=== PATIENT | male | born 1965 | race Caucasian/White ===

== ENCOUNTER 2020-03-05 08:08 | Inpatient (IN) ==
[2020-03-05] MEDS ORDERED: CEFAZOLIN 1000MG 1,000 MG/7.5 ML SYR IV ONE (08:34)
[2020-03-05] MEDS ORDERED: ONDANSETRON INJ 2 MG/ML 2 ML VIAL IV PRN (08:36)
[2020-03-05] MEDS ORDERED: ACETAMINOPHEN 325 MG TAB PO PRN (08:36)
--- NOTE | 2020-03-05 08:42 | History & Physical Report ---
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 - Keep NPO for perma cath today by Dr. Price - consult placed - Check CBC, CMP and hepatitis panel now - EKG for preop clearance-NSR - Cont sodium bicarb, prednisone 80 mg daily-no need for stress dose steroids as BPs high and not steroids dependent (only on prednisone x 2 weeks) - Re-eval if pt really taking calcitrol - will order (2) Glomerulonephritis: C-ANCA positive acute GN Worsening renal function On high dose steroids x 2 weeks -for perm cath placement today and start HD tomorrow -follow labs -continue prednisone 80mg daily for now nad plan to taper down -continue NaHCO3, calcitriol Appreciate Nephrology management (3) Hyperparathyroidism: continue calcitriol (4) HTN (hypertension): - Cont lebatolol 300 mg BID, will need improved BP control, likely anxiety worsening BP this morning. - Appears he was discharged on amlodipine 10 mg daily after stay from [place] but is not taking this medication - Pt took morning dose (5) Normocytic anemia: - Had baseline hemoglobin of 9.8, was given IV Venofer 300 mg x 3 days while at [place], follow CBC - Cont supplemental iron tabs - reinforce to take at home upon discharge (6) DVT prophylaxis: - cassia leal CODE: Full Dispo: From home, likely to remain in the hospital x 1-2 days Admission and Anticipated Discharge Date Admission Date: March 05, 2020 History of Present Illness Chief Complaint: Needs dialysis Primary Care Provider: Jone Reddy This is a 54 yo M with PMHx of glomerulonephritis, acute on chronic anemia, hypertension, hyperparathyroidism secondary to renal disease who underwent recent kidney biopsy at [facility] on 02/15/2020. PT also smokes 1 ppd x many years. He used to drink heavily however has only had a few beers occasionally in the past 6 months. His course started in September at which his Cr was noted to be elevated at 2.7, and concern for hematuria and proteinuria and followed with nephrology since then. His care was delayed due to COVID-19 in December when he was supposed to follow with them. His Cr worsened to 3.6 and hgg dropped to 8.8, and pt was sent to [facility] [place] expedited workup for glomerulonephritis including kidney biopsy. He was admitted at [facility] [place]14[place]. He presents here today for placement of a permacath by vascular surgery. Nephrology has been consulted. He has been NPO since last evening. His last Cr. is fro 02/27 was 3.62. He has since been started on prednisone 80 mg daily, labetalol 300 mg BID, and sodium bicarb 1,300 mg TID. The patient is nervous about the procedure and has some fears about being on dialysis for his life. Allergies Allergy/AdvReac Type Severity Reaction Status Date / Time No Known Drug Allergies Allergy Unknown Verified 02/22/20 13:04 Home Medications Home Medications Medication Instructions Recorded Confirmed Type ferrous sulfate 325 mg (65 mg 325 mg PO BID #60 tab 02/14/20 03/05/20 Rx iron) tablet labetalol 100 mg tablet 300 mg PO BID tab 02/22/20 03/05/20 History prednisone 20 mg tablet 80 mg PO DAILY tab 02/22/20 03/05/20 History sodium bicarbonate 650 mg tablet 1,300 mg PO TID tab 02/22/20 03/05/20 History Past Med/Surg History Medical History (Updated 03/05/20 @ 10:05 by Suma Jensen MD) Acute kidney injury Chronic kidney disease, stage 4 (severe) End stage renal disease Glomerulonephritis HTN (hypertension) Internal hemorrhoids Lyme disease Surgical History (Updated 03/05/20 @ 10:05 by Suma Jensen MD) Status post biopsy of kidney Family History Brother Hyperlipemia Hypertension Mother Hypertension Sister Kidney disease Grandfather (Paternal) COPD (chronic obstructive pulmonary disease) Social History (Updated 03/05/20 @ 10:05 by Suma Jensen MD) Preferred Language: Serbian Communication Ability: Effective Gis Coordinator Required: No Beliefs That Will Affect Care: None marital status: Current Living Situation: Alone current occupational status: unemployed Other Information That Helps Us Care for You: No Feels Safe at Home: Yes Safety Concerns: Feels Safe At This Time Smoking Status: Current every day smoker Tobacco Type: cigarettes ; packs per day: 1 ; Cigarettes Per Day: 20 ; Do You Dip or Chew Tobacco: No ; Second Hand Exposure: No ; Tobacco Cessation Education Requested by Patient: No Hx Alcohol Use: Yes Hx Substance Use: No Seatbelt Use: always Sunscreen Use: No Review of Systems Review of Systems: Constitutional: No fever, sweats or chills Eyes: No diplopia, no worsening or blurred vision ENT: normal hearing, no trouble swallowing Respiratory: No cough, sputum, dyspnea at rest or on exertion Cardiovascular: No chest pain, tightness or palpitations Abdomen: No pain, nausea, vomiting, diarrhea or constipation : no hematuria, no dysuria or increased frequency Musculoskeletal: No joint pain, calf pain, swelling Neurologic: No weakness, numbness/tingling, or balance problems Skin: No rash or itch Physical Exam Physical Exam: General: awake, alert, no apparent distress, + anxious Head: Normocephalic, atraumatic ENT: PERRL, EOMI, no pharyngeal exudate, mucous membranes moist Chest: on room air, +slightly diminished, no adventitious breath sounds Cardiac: Regular rate and rhythm, no murmur, no JVD, normal peripheral pulses, good capillary refill Abdominal: NABS x 4 quadrants, soft, nondistended, nontender to palpation, no rebound, guarding or tenderness Extremities: Normal inspection, no peripheral edema or erythema, calfs nontender to palpation Psych: Depressed mood and affect Neuro: AAO x 3, strength intact bilaterally and rated 5/5, no motor deficits, speech is clear, no peripheral sensory deficits Results & Data Results & Data ([facility]) ECG Additional Comments: Reviewed at bedside - NSR without ST wave abnormalities or signs of ischemia Code Status & VTE Plan Code Status Full code - discussed with pt at baseline VTE Prophylaxis Plan VTE Prophylaxis will be ordered: Yes Supervising Physician Co-Signing Physician Notes PA Supervision Note: I personally saw and examined the patient. I verified all revin points and agree with YULI Fitch with the following exceptions and/or additions: Pt here to get perm cath and start acute HD for acute GN, C-ANCA positive on biopsy Was feeling low appetite and fatigue but slightly better since admission to [facility] [place] with renal biopsy and received IV Venofer and hydration, also started on high dose prednisone History and ROS reviewed as above VSS NAD, AAOx3 RRR no mgr CTAB no wcr ABd +BS soft NT ND no bruits Ext no edema SKin no rashes Labs reviewed, ECG reviewed Old records reviewed Case d/w Dr. Bautista of Nephrology and [place] [facility] of Vascular Surgery as well as Dr. Price of Vascular Surgery 54 yo male here with acute GN, worsening renal failure, needs acute HD and perm cath placement -admit -perm cath placement -start HD tomorrow -follow BMP, CBC, Fe studies check COVID test now for preop but no signs or symptoms and had negative test 2 weeks ago at [facility] Start amlodipine 5mg daily for hytpertensive urgency, no need for stress dose steroids Will need DVT proph after procedure PG Care Time/CCT Total # of Minutes Spent Total Time Spent with Patient: Total time spent is greater than 50% in coordination of care (as documented) at patient's floor/unit and/or counseling patient: Coding Level of Care Code 00062 Initial Inpt Care Lvl 3 Diagnoses Chronic kidney disease, stage 4 (severe) N18.4 Glomerulonephritis N05.9 Hyperparathyroidism E21.3 HTN (hypertension) I10 Normocytic anemia D64.9 DVT prophylaxis Z29.9
[2020-03-05] MEDS ORDERED: PNEUMOCOCCAL ADMINISTRATION CHARGE ONE (08:45)
[2020-03-05] MEDS ORDERED: PNEUMOCOCCAL POLYSACCHARIDES 25 MCG/0.5 ML VIAL/SYR IM ONE (08:45)
[2020-03-05] MEDS ORDERED: HYDROCORTISONE SOD 100 MG in SYRINGE 0 ML IV SCH (09:15)
[2020-03-05 09:25] LABS: Albumin Level 2.8 gm/dl (3.4-5.0); BUN Creatinine Ratio 29.5 (10-20); Creatinine Clr Calc Pharmacy 23.6 ml/min; Est GFR (African American) 17.7; Est GFR (Non-African American) 15.2; Potassium 4.4 mmol/L (3.5-5.1)
[2020-03-05 09:27] LABS: Albumin Globulin Ratio 0.9 (0.9-2); Bilirubin,Total 0.2 mg/dl (0.2-1); Total Protein 5.8 gm/dl (6.4-8.2)
--- NOTE | 2020-03-05 09:32 | Consultation ---
Date of Consultation March 05, 2020 Assessment & Plan (1) End stage renal disease: Pt scheduled for permcath insertion later this morning. Also discussed AVF creation with pt, will plan to schedule as outpt after discharge. History of Present Illness Reason for Consultation: ESRD, need permcath Attending Physician: Suma Jensen MD History of Present Illness 54 yo m with hx of HTN, recently dx with ESRD d/t ANCA vasculitis, seen in consultation today for insertion of permcath for HD. Pt admits fatigue d/t an emia. Denies PANDYA, fever, chills, chest pain, SOB, abd pain, N/V, rest pain, claudication, other complaints. Allergies Allergy/AdvReac Type Severity Reaction Status Date / Time No Known Drug Allergies Allergy Unknown Verified 02/22/20 13:04 Home Medications Home Medications Medication Instructions Recorded Confirmed Type ferrous sulfate 325 mg (65 mg 325 mg PO BID #60 tab 02/14/20 03/05/20 Rx iron) tablet labetalol 100 mg tablet 300 mg PO BID tab 02/22/20 03/05/20 History prednisone 20 mg tablet 80 mg PO DAILY tab 02/22/20 03/05/20 History sodium bicarbonate 650 mg tablet 1,300 mg PO TID tab 02/22/20 03/05/20 History Patient History Medical History Acute kidney injury Chronic kidney disease, stage 4 (severe) End stage renal disease Glomerulonephritis HTN (hypertension) Internal hemorrhoids Lyme disease Surgical History Status post biopsy of kidney Family History Brother Hyperlipemia Hypertension Mother Hypertension Sister Kidney disease Grandfather (Paternal) COPD (chronic obstructive pulmonary disease) Social History Preferred Language: Kinyarwanda Communication Ability: Effective Bright Cutter Required: No Beliefs That Will Affect Care: None marital status: Current Living Situation: Alone current occupational status: unemployed Other Information That Helps Us Care for You: No Feels Safe at Home: Yes Safety Concerns: Feels Safe At This Time Smoking Status: Current every day smoker Tobacco Type: cigarettes ; packs per day: 1 ; Cigarettes Per Day: 20 ; Do You Dip or Chew Tobacco: No ; Second Hand Exposure: No ; Tobacco Cessation Education Requested by Patient: No Hx Alcohol Use: Yes Hx Substance Use: No Seatbelt Use: always Sunscreen Use: No Review of Systems Review of Systems: All systems reviewed & are unremarkable except as noted in HPI & below Physical Exam Constitutional: WD/WN, vitals as above Eyes: PERRL, conjunctivae normal, anicteric sclerae ENMT: external ear and nose normal, oropharynx normal Ears: no hearing impairment Neck: normal visual inspection Respiratory: normal respiratory effort, lungs clear to auscultation Cardiovascular: RRR, no murmur, no edema Vessels: normal peripheral pulses, femoral pulses present, posterior tibial pulses present, dorsalis pedis pulses present, brachial pulses present and radial pulses present Extremities: normal capillary refill; no edema Gastrointestinal (Abdomen): normal bowel sounds, soft, nontender, no hepatosplenomegaly Musculoskeletal: no cyanosis or clubbing, extremities motor strength 5/5 Skin: no rashes, warm and dry Neurologic: moves all extremities and awake; no focal motor deficits and not confused Psychiatric: A+Ox3, euthymic affect Results & Data Vital Signs (Past 12 Hours) Vital Signs Temp Pulse Resp BP BP Pulse Ox 03/05/20 08:17 36.7 C 52 L 18 196/105 H 206/108 H 100
[2020-03-05] MEDS: SODIUM CHLORIDE 0.9% 1000ML 1,000 ML IV SCH ×2 (10:15→21:59)
[2020-03-05] MEDS: FERROUS SULFATE 325 MG TAB PO SCH ×2 (10:26→20:30)
[2020-03-05] MEDS: AMLODIPINE BESYLATE 5 MG TAB PO SCH (10:26)
[2020-03-05 10:35] LABS: Ferritin 201.7 ng/ml (8-388)
[2020-03-05 11:06] LABS: Hepatitis B Surface Ab Quant < 3.10 mIU/mL (>or=10mIU/mL Immune); Hepatitis B Surface Antibody Non-Immune
[2020-03-05 11:16] LABS: Hepatitis B Surface Antigen Neg (Neg)
--- NOTE | 2020-03-05 11:19 | Nephrology Consultation ---
Date of Consultation March 05, 2020 Assessment & Plan (1) Glomerulonephritis: Clinical presentation consistent with a longstanding GPA. Prednisone 80 mg daily as part of a slow taper. Unfortunately, the patient does not have significant evidence of acute RPGN. Biopsy demonstrated fibrocellular changes and other evidence of advanced disease with little chance for renal recovery. (2) End stage renal disease: Vascular surgery consulted for permcath placement. Dilan when require AVF placement when appropriate. Once dialysis catheter is secure, we will proceed with first treatment (likely tomorrow). services delivery driver has been consulted to assist with outpatient arrangements for dialysis. Dilan would like to continue dialysis at [facility] under the care of Dr. Jimenez. Hep B profile has been sent. Renal MVI provided today. Education regarding dialysis provided. (3) Normocytic anemia: Due to CKD. Chronic, stable. No signs of acute blood loss. Iron profile pending. Remains on oral iron replacement. Epogen held due to accelerated BP and pending review of iron profile. (4) HTN (hypertension): Remains on labetalol per outpatient dosing. Amlodipine Rx'd as outpatient but Dilan is not sure he was taking. This has been restarted. Consideration could also certainly be given to restarting RAAS blockade given anticipated need for FACILITIES ASSISTANT. History of Present Illness Reason for Consultation: CKD Requesting Physician: Suma Jensen MD Attending Physician: Suma Jensen MD History of Present Illness Mr. Dilan Muse is a 54-year-old male who was directly admitted to [facility] today due to advanced renal failure requiring emergent dialysis. Dilan was referred for admission by his government affairs researcher, Dr. Jimenez. I have reviewed the plan of care with Dr. Jimenez and Dr. Jensen. Past medical history is notable for hypertension and chronic NSAID use. Dilan presented to the nephrology clinic for initial evaluation in November 2019. Renal dysfunction had been detected on routine laboratory studies. Evaluation demonstrated evidence of GN. Serologic evaluation +c-ANCA with reasonably high dilution titre. No systemic symptoms of vasculitis or upper respiratory symptoms have been reported. Review of symptoms has been notable for decreased activity tolerance and generalized malaise. This has been progressive. Dilan was admitted to [facility] earlier this month for evaluation. Biopsy unfortunately showed significant chronic changes with a large component of active acute disease. Kidney function has been declining rapidly despite prednisone 80 mg daily. Dilan discussed renal replacement therapy options with Dr. Jimenez. He lives alone and has deferred home therapy at this time. He favors in-center HD at [facility]. Vascular surgery has been consulted for TDC placement today. This is scheduled pending COVID testing. Allergies Allergy/AdvReac Type Severity Reaction Status Date / Time No Known Drug Allergies Allergy Unknown Verified 02/22/20 13:04 Home Medications Home Medications Medication Instructions Recorded Confirmed Type ferrous sulfate 325 mg (65 mg 325 mg PO BID #60 tab 02/14/20 03/05/20 Rx iron) tablet labetalol 100 mg tablet 300 mg PO BID tab 02/22/20 03/05/20 History prednisone 20 mg tablet 80 mg PO DAILY tab 02/22/20 03/05/20 History sodium bicarbonate 650 mg tablet 1,300 mg PO TID tab 02/22/20 03/05/20 History Patient History Medical History Acute kidney injury Chronic kidney disease, stage 4 (severe) End stage renal disease Glomerulonephritis HTN (hypertension) Internal hemorrhoids Lyme disease Surgical History Status post biopsy of kidney Family History Brother Hyperlipemia Hypertension Mother Hypertension Sister Kidney disease Grandfather (Paternal) COPD (chronic obstructive pulmonary disease) Social History Preferred Language: Mohawk Communication Ability: Effective Integrated Marketing Manager Required: No Beliefs That Will Affect Care: None marital status: Current Living Situation: Alone current occupational status: unemployed Other Information That Helps Us Care for You: No Feels Safe at Home: Yes Safety Concerns: Feels Safe At This Time Smoking Status: Current every day smoker Tobacco Type: cigarettes ; packs per day: 1 ; Cigarettes Per Day: 20 ; Do You Dip or Chew Tobacco: No ; Second Hand Exposure: No ; Tobacco Cessation Education Requested by Patient: No Hx Alcohol Use: Yes Hx Substance Use: No Seatbelt Use: always Sunscreen Use: No Review of Systems Review of Systems: All systems reviewed & are unremarkable except as noted in HPI & below Physical Exam Constitutional: well developed; no acute distress Eyes: no scleral abnormality and no corneal abnormality ENMT: Mouth: no oral mucosal abnormality and oral mucous membranes not dry Neck: normal visual inspection and trachea midline Respiratory: normal respiratory effort Auscultation: lungs clear to auscultation bilaterally Cardiovascular: Rate/Rhythm: regular rate Heart Sounds: normal S1 and normal S2 Extremities: no edema Musculoskeletal: Extremities: no cyanosis and no clubbing Skin: normal turgor; no lesions Neurologic: Motor/Sensory: no tremor and no asterixis Psychiatric: Orientation: alert and oriented x 3 Results & Data Vital Signs (Past 12 Hours) Vital Signs Temp Pulse Resp BP BP Pulse Ox 03/05/20 08:17 36.7 C 52 L 18 196/105 H 206/108 H 100 Laboratory Results Laboratory Results - last 24 hr 03/05/20 03/05/20 03/05/20 08:48 08:48 08:48 Sodium 143 Potassium 4.4 Chloride 116 H Carbon Dioxide 19 L Anion Gap 8.0 BUN 122 H Creatinine 4.12 H Est Cr Clr Drug Dosing 23.6 Est GFR ( Amer) 17.7 Est GFR (Non-Af Amer) 15.2 BUN/Creatinine Ratio 29.5 H Glucose 86 Calcium 8.0 L Iron Transferrin Transferrin % Sat Ferritin Total Bilirubin 0.2 AST 8 L ALT 24 Alkaline Phosphatase 73 Total Protein 5.8 L Albumin 2.8 L Globulin 3.0 Albumin/Globulin Ratio 0.9 COVID-19 PCR Hepatitis A IgM Ab Pending Hep Bs Antigen Neg Hep Bs Antibody Non-Immune Hep Bs Antibody, Quant < 3.10 L Hep B Core IgM Ab Pending Hepatitis C Antibody Pending 03/05/20 03/05/20 08:48 10:00 Sodium Potassium Chloride Carbon Dioxide Anion Gap BUN Creatinine Est Cr Clr Drug Dosing Est GFR ( Amer) Est GFR (Non-Af Amer) BUN/Creatinine Ratio Glucose Calcium Iron 72 Transferrin 194 L Transferrin % Sat 26 Ferritin 201.7 Total Bilirubin AST ALT Alkaline Phosphatase Total Protein Albumin Globulin Albumin/Globulin Ratio COVID-19 PCR NEGATIVE Hepatitis A IgM Ab Hep Bs Antigen Hep Bs Antibody Hep Bs Antibody, Quant Hep B Core IgM Ab Hepatitis C Antibody PG Care Time/CCT Total # of Minutes Spent Total Time Spent with Patient: Total time spent is greater than 50% in coordination of care (as documented) at patient's floor/unit and/or counseling patient: Coding Level of Care Code 14034 Inpt Consult Level 4 Diagnoses Glomerulonephritis N05.9 End stage renal disease N18.6 Normocytic anemia D64.9 HTN (hypertension) I10
[2020-03-05] MEDS ORDERED: HEPARIN SOD (PORCINE) 5,000 UNITS/ML VIAL ONE (11:41)
[2020-03-05] MEDS ORDERED: LIDOCAINE HCL 1% 20 ML VIAL ONE (11:41)
[2020-03-05] MEDS ORDERED: CEFAZOLIN 2,000 MG/15 ML IV PUSH IV ONE (11:42)
--- NOTE | 2020-03-05 11:43 | Electrocardiogram Report ---
Test Reason : Blood Pressure : / mmHG Vent. Rate : 063 BPM Atrial Rate : 063 BPM P-R Int : 150 ms QRS Dur : 106 ms QT Int : 424 ms P-R-T Axes : 059 039 049 degrees QTc Int : 433 ms Normal sinus rhythm Normal ECG No previous ECGs available Confirmed by Anderson Rockwell ([id number]) on 03/05/2020 11:42:44 AM Referred By: Stephanie Jimenez Confirmed By:Anderson Rockwell
[2020-03-05 11:45] LABS: Hepatitis C IgG 13Yrs+Old_Rflx Neg (Neg)
--- NOTE | 2020-03-05 11:50 | History & Physical Bridge Note ---
Date of Service March 05, 2020 History & Physical Bridge Note Patient for permcath today. I have discussed the risks options and benefits of the procedure with the patient. The patient understands the risks options and benefits and agrees to the procedure. I have examined the patient, reviewed the History & Physical and in the interval since the performance of the History & Physical I have noted the following changes of clinical significance: no changes noted
--- NOTE | 2020-03-05 12:10 | Pre Anesthesia Assessment ---
Date of Service March 05, 2020 Pre Sedation Assessment Vital Signs Temp Pulse Resp BP BP Pulse Ox 03/05/20 12:03 36.4 C L 62 18 186/94 H 98 03/05/20 08:17 36.7 C 52 L 18 196/105 H 206/108 H 100 Cardiovascular RRR, no murmur, no edema Respiratory normal respiratory effort, lungs clear to auscultation Pre-Sedation Airway Assessment Smoking Status: Current every day smoker Hx Sleep Apnea: No Short, Thick Neck: No Thyromental Distance: > or= 3.5 Finger Breadths Oral Cavity: + WNL Mallampati Class: II ASA: ASA4 NPO Status Date of Last Intake of Fluids: 03/04/20 Time of Last Intake of Fluids: 08:00 Date of Last Intake of Solid Food: 03/04/20 Time of Last Intake of Solid Foods: 20:30 Procedure Planning Contraindications for Sedation: none Current Medications Reviewed: Yes Notes The planned sedation has been discussed with the patient. Informed Consent was obtained. I have identified the patient, determined the appropriateness of s edation and have assessed the patient immediately prior to the procedure. All medicine(s) and interventions are by my order.
[2020-03-05] MEDS ORDERED: fentaNYL citrate 100 MCG/2 ML VIAL ONE (12:13)
[2020-03-05] MEDS ORDERED: MIDAZOLAM HCL 1 MG/ML 2ML VIAL ONE (12:14)
--- NOTE | 2020-03-05 12:41 | Procedure Note ---
Angiogram Post Procedure Fluoroscopy Time (minutes): 0.1 Conscious Sedation Time (minutes): 15 Radiation (mGy): 2 Contrast: 0 Post Operative Report Pre & Post Diagnosis Operation Date: 03/05/20 09:50 Pre-Op Diagnosis: END STAGE RENAL DISEASE Post-Op Diagnosis: END STAGE RENAL DISEASE I identified the patient and participated in the time-out.: Yes Procedure Operation Date: 03/05/20 09:50 Actual Procedures p Perm Catheter Placement, Right Jugular Approach, Ultrasound Localization of Right Jugular Vein, Moderate Sedation: 1226- 1241(Right) - Andrea Price MD Surgeon Andrea Price MD Marketing Editor None Estimated Blood Loss 3 Findings Consistent with Post-Op Diagnosis Specimens None Anesthesia Type RN Sedation Complications none Disposition Accompanied Patient To Recovery: No Disposition: Recovery Room Indications This is a 54-year-old gentleman with end-stage renal disease in need of dialysis. Access via PermCath was recommended. I have discussed the risks options and benefits of the procedure with the patient. The patient understands the risks options and benefits and agrees to the procedure. Description of Procedure Patient was taken to the angio suite and placed in the supine position. The right side of the neck and chest wall were prepped and draped in a sterile manner. The patient was identified and a timeout performed. Local anesthesia was then administered to the appropriate areas of the neck and chest wall. Ultrasound was then used to locate the right internal jugular vein. The vein compressed easily, had no filing defects, and was patent. The vein was then punctured under direct ultrasound imaging. A guidewire was then passed centrally under fluoroscopic imaging. A stab wound was then made in the anterior chest wall and a 19 cm permcath was passed from the stab wound on the chest wall to the puncture site on the neck. The puncture site was then dilated till the 14Fr peel away sheath was inserted. The permcath was then inserted through the sheath to a central position in the distal superior vena cava. The peel away sheath was then removed. The catheter was then sutured in place using nylon sutures. The puncture was then closed using a 4-0 Vicryl subcuticular suture. Dermabond was used for a dressing on the puncture site. Both ports aspirated and flushed easily and were then packed with heparin. A sterile dressing was applied to the catheter. The patient left the operation room in satisfactory condition and tolerated the procedure well. All needle and sponge counts were correct at the end of the procedure. I attest to the content of the Intraoperative Record and any orders documented therein. Any exceptions are noted below.
--- NOTE | 2020-03-05 12:42 | Post Anesthesia Assessment ---
Date of Service March 05, 2020 Post Sedation Assessment Vital Signs Temp Pulse Pulse Resp BP BP Pulse Ox 03/05/20 12:36 59 L 16 171/99 H 100 03/05/20 12:31 60 16 196/104 H 100 03/05/20 12:26 54 L 14 193/92 H 100 03/05/20 12:18 48 L 15 173/98 H 100 03/05/20 12:03 36.4 C L 62 18 186/94 H 98 03/05/20 08:17 36.7 C 52 L 18 196/105 H 206/108 H 100 Recovery Score Activity: Moves 4 extremities Respiration: Deep Breath/Cough Circulation: +/-20% PreAnes Value Consciousness: Fully Awake Oxygen Saturation: > 92% On Room Air Post Anesthesia Score: 10 Discharge Sedation Level of Care: Fast Track Phase II Post Sedation Plan On clinical assessment, the patient appears to have tolerated the sedation without complications. Patient is recovering as anticipated. Patient will continue to be monitored by nursing and may be discharged when sedation discharge criteria are met per below protocol. Upon Completions of procedure up to 15 minutes continue every 5 minute vital signs and the P.A.R. score; then discharge to a Phase I or Fast Track to Phase II per the following guidelines: * Discharge Patient to appropriate Phase II area if PAR is 8 or greater or return to pre- procedure baseline. The post - procedure orders will be as directed. * If PAR score is less than 8 or not return to pre-procedure baseline then patient will follow Phase I monitoring till PAR is reached for Phase II. The Phase I may be done in procedure room or may call to secure a Phase I area. * If naloxone or flumazenil are used for reversal, hold in Phase I for c ontinued monitoring from when last reversal dose was given for a minimum of 60 minutes or longer pending the nurse and/or physician discretion of patient condition before discharge to Phase II. Please call the Sedation Physician to re-evaluate and complete post-note for discharge to Phase II area. Do NOT discharge from procedure sedation or Phase 1 until post- sedation evaluation note is complete by procedure /sedation MD Sedation Discharge Instructions to be given to the patient at discharge to home.
[2020-03-05] MEDS: SODIUM BICARBONATE 650 MG TAB PO SCH ×2 (13:54→20:29)
[2020-03-05] MEDS: LABETALOL HCL 300 MG TAB PO SCH (20:31)
[2020-03-06 05:41] LABS: Basophils # (auto) 0.01 K/uL (0-0.2); Basophils % (auto) 0.1 %; Eosinophils # (auto) 0.02 K/uL (0-0.5); Eosinophils % (auto) 0.2 %; Hematocrit (blood only) 23.6 % (42-52); Hemoglobin 7.8 g/dL (14.0-18.0); Immature Granulocytes # (auto) 0.03 K/uL (0.00-0.02); Immature Granulocytes % (auto) 0.2 %; Lymphocytes # (auto) 1.11 K/uL (1.2-3.4); Lymphocytes % (auto) 8.9 %; Mean Corpuscular Hemoglobin 29.9 pg (25-34); Mean Corpuscular Hgb Conc 33.1 g/dL (32-36); Mean Corpuscular Volume 90.4 fL (80-100); Mean Platelet Volume 9.5 fL (7.4-10.4); Monocytes # (auto) 0.85 K/uL (0.11-0.59); Monocytes % (auto) 6.8 %; Neutrophils # (auto) 10.48 K/uL (1.4-6.5); Neutrophils % (auto) 83.8 %; Platelet Count 238 K/uL (130-400); RDW Standard Deviation 59.5 fL (36.4-46.3); Red Blood Count 2.61 M/uL (4.7-6.1)
[2020-03-06 06:11] LABS: Albumin Level 2.3 gm/dl (3.4-5.0); BUN Creatinine Ratio 30.9 (10-20); Calcium 7.5 mg/dl (8.5-10.1); Creatinine Clr Calc Pharmacy 26.1 ml/min; Est GFR (Non-African American) 17.2; Phosphorus 3.6 mg/dl (2.5-4.9)
[2020-03-06] MEDS ORDERED: IRON SUCROSE 200 MG in 0.9 % SODIUM CHLORIDE 100 ML IV SCH (07:00)
[2020-03-06] MEDS ORDERED: EPOETIN ALFA 20,000 UNITS/ML VIAL IV SCH (07:00)
[2020-03-06] MEDS: FERROUS SULFATE 325 MG TAB PO SCH ×2 (08:32→21:31)
[2020-03-06] MEDS: LABETALOL HCL 300 MG TAB PO SCH ×2 (08:33→16:17)
[2020-03-06] MEDS: NEPHROCAPS PO SCH (08:33)
[2020-03-06] MEDS: predniSONE 20 MG TAB PO SCH (08:34)
[2020-03-06] MEDS: SODIUM BICARBONATE 650 MG TAB PO SCH ×3 (08:34→21:31)
[2020-03-06] MEDS: CALCITRIOL 0.25 MCG CAPSULE PO SCH (08:34)
[2020-03-06] MEDS: AMLODIPINE BESYLATE 5 MG TAB PO SCH (08:34)
--- NOTE | 2020-03-06 09:20 | Nephrology Progress Note ---
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 Prednisone 80 mg daily as part of a slow taper. Unfortunately, the patient does not have significant evidence of acute RPGN. 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 (2) End stage renal disease: Orders for first HD treatment entered into the EMR this AM. POD#1 s/p RIJ permcath placement. Dilan will require AVF placement when appropriate. Social work consulted for discharge planning. Renal MVI daily. (3) Normocytic anemia: Venofer 200 mg IV and Epogen 96785 units to be given with HD today. (4) HTN (hypertension): Continue labetalol and amlodipine as Rx. Hopefully will see some improvement with HD. Bradycardic but appears to be tolerating Bblocker reasonably well. May add JOE/ARB once on HD. Admission and Anticipated Discharge Date Admission Date: March 05, 2020 Subjective No acute events overnight. Tolerated catheter placement well. No bleeding. Denies significant pain. Breathing comfortably. BP accelerated. Review of Systems Review of Systems: All systems reviewed & are unremarkable except as noted in HPI & below Physical Exam Constitutional: well developed; no acute distress Eyes: no scleral abnormality and no corneal abnormality ENMT: Mouth: no oral mucosal abnormality and oral mucous membranes not dry Neck: normal visual inspection and trachea midline RIJ TDC Respiratory: normal respiratory effort Auscultation: lungs clear to auscultation bilaterally Cardiovascular: Rate/Rhythm: regular rate Heart Sounds: normal S1 and normal S2 Extremities: no edema Musculoskeletal: Extremities: no cyanosis and no clubbing Skin: normal turgor; no lesions Neurologic: Motor/Sensory: no tremor and no asterixis Psychiatric: Orientation: alert and oriented x 3 Results & Data ([facility]) Vital Signs (Past 12 Hours) Vital Signs Temp Pulse Resp BP BP Pulse Ox 03/06/20 07:41 36.4 C L 49 L 16 191/93 H 99 03/06/20 03:16 36.5 C 68 18 185/99 H 98 03/05/20 23:52 36.8 C 58 L 18 190/98 H 97 Laboratory Results Laboratory Results - last 24 hr 03/05/20 03/05/20 03/05/20 08:48 08:48 08:48 WBC RBC Hgb Hct MCV MCH MCHC RDW Std Deviation RDW Coeff of Pari Plt Count MPV Immature Gran % (Auto) Neut % (Auto) Lymph % (Auto) [place] % (Auto) Eos % (Auto) Baso % (Auto) Neut # (Auto) Lymph # (Auto) [place] # (Auto) Eos # (Auto) Baso # (Auto) Immature Gran # (Auto) Hypersegmented Neuts Sodium 143 Potassium 4.4 Chloride 116 H Carbon Dioxide 19 L Anion Gap 8.0 BUN 122 H Creatinine 4.12 H Est Cr Clr Drug Dosing 23.6 Est GFR ( Amer) 17.7 Est GFR (Non-Af Amer) 15.2 BUN/Creatinine Ratio 29.5 H Glucose 86 Calcium 8.0 L Phosphorus Iron 72 Transferrin 194 L Transferrin % Sat 26 Ferritin 201.7 Total Bilirubin 0.2 AST 8 L ALT 24 Alkaline Phosphatase 73 Total Protein 5.8 L Albumin 2.8 L Globulin 3.0 Albumin/Globulin Ratio 0.9 COVID-19 PCR Hep Bs Antigen Neg Hep Bs Antibody Non-Immune Hep Bs Antibody, Quant < 3.10 L Hepatitis C Antibody Neg 03/05/20 03/06/20 03/06/20 10:00 05:22 05:22 WBC 12.50 H RBC 2.61 L Hgb 7.8 L Hct 23.6 L MCV 90.4 MCH 29.9 MCHC 33.1 RDW Std Deviation 59.5 H RDW Coeff of Pari 18.0 H Plt Count 238 MPV 9.5 Immature Gran % (Auto) 0.2 Neut % (Auto) 83.8 Lymph % (Auto) 8.9 [place] % (Auto) 6.8 Eos % (Auto) 0.2 Baso % (Auto) 0.1 Neut # (Auto) 10.48 H Lymph # (Auto) 1.11 L [place] # (Auto) 0.85 H Eos # (Auto) 0.02 Baso # (Auto) 0.01 Immature Gran # (Auto) 0.03 H Hypersegmented Neuts 1+ Sodium 143 Potassium 4.0 Chloride 118 H Carbon Dioxide 17 L Anion Gap 8.0 BUN 115 H Creatinine 3.72 H D Est Cr Clr Drug Dosing 26.1 Est GFR ( Amer) 20.0 Est GFR (Non-Af Amer) 17.2 BUN/Creatinine Ratio 30.9 H Glucose 94 Calcium 7.5 L Phosphorus 3.6 Iron Transferrin Transferrin % Sat Ferritin Total Bilirubin AST ALT Alkaline Phosphatase Total Protein Albumin 2.3 L Globulin Albumin/Globulin Ratio COVID-19 PCR NEGATIVE Hep Bs Antigen Hep Bs Antibody Hep Bs Antibody, Quant Hepatitis C Antibody PG Care Time/CCT Total # of Minutes Spent Total Time Spent with Patient: Total time spent is greater than 50% in coordination of care (as documented) at patient's floor/unit and/or counseling patient: Coding Level of Care Code 61603 Subseq Hosp Care Lvl 3 Diagnoses Glomerulonephritis N05.9 End stage renal disease N18.6 Normocytic anemia D64.9 HTN (hypertension) I10
[2020-03-06 10:49] LABS: Hepatitis A Antibody IgM NON-REACTIVE (NON-REACTIVE); Hepatitis B Core Antibody IgM NON-REACTIVE (NON-REACTIVE)
--- NOTE | 2020-03-06 16:00 | Hospitalist Progress Note ---
Date of Service March 06, 2020 Assessment & Plan (1) Glomerulonephritis: C-ANCA positive acute GN Worsening renal function On high dose steroids x 2 weeks now [place] [facility] [place] -started HD 03/06 short session and plans for 3 consecutive ramp up treatments Appreciate Nephro management -follow labs -continue prednisone 80mg daily for now and plan to taper down -continue NaHCO3, calcitriol Outpatient HD referral placed Unclear if will be doing PD eventually? 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 -started on Nephrocaps (3) Hyperparathyroidism: 2/ ESRD continue calcitriol (4) HTN (hypertension): With hypertensive urgency here-likely secondary to renal failure, high dose prednisone, some anxiety component labetalol was held the last 2 doses for asymptomatic bradycardia -change rate limit to hold for HR<55 for labetalol -increase amlodipine back to 10mg daily -will likely add lisinopril back on after established on HD (5) Normocytic anemia: - Had baseline hemoglobin of 9.8, was given IV Venofer 300 mg x 3 days while at [place] Hgb down to 7.8 now, normocytic Fe sat 26% - Cont supplemental iron tabs -given IV Venofer and Epogen today with HD -follow CBC -started Nephrocaps (6) Metabolic acidosis: HCO3 down to 17 today -started HD -continue NaHO3 (7) Leukocytosis: 12k WBCs, likely secondary to high dose prednisone No signs of infection follow CBC (8) DVT prophylaxis: - teds, scds, avoid chem AC until ok with Vascular Surgery after procedure CODE: Full Dispo: continued stay for acute HD, establishing outpt HD chair and getting medical assistance Admission and Anticipated Discharge Date Admission Date: March 05, 2020 Subjective Had first session of HD today and said it went well, no problems. He is concerned about how high his BP is. Denies headache or chest pain, no SOB. Has some soreness at perm cath site from yesterday. Denies nausea and states he is eating large portions and is eating more than ever. Is making urine and moving his bowels. Afebrile. Has questions about outpt dialysis and when he can return to work realistically. Review of Systems Review of Systems: All systems reviewed & are unremarkable except as noted in HPI & below Physical Exam Constitutional: WD/WN, vitals as above Eyes: + anicteric sclerae Neck: trachea midline, no thyromegaly + abnormal visual inspection (right IJ with incisional wound with dermabond) Respiratory: normal respiratory effort, lungs clear to auscultation Cardiovascular: RRR, no murmur, no edema Extremities: + vascular access device (RIJ tunneled catheter w/ dressing,no erythema) Chest (Breasts): Chest: normal inspection of chest Gastrointestinal (Abdomen): normal bowel sounds, soft, nontender, no hepatosplenomegaly Musculoskeletal: Extremities: extremities normal to inspection; no cyanosis and no clubbing Skin: no rashes, warm and dry Neurologic: moves all extremities and awake; no focal motor deficits Psychiatric: A+Ox3, euthymic affect Lymphatic: no lymphedema Results & Data Results & Data ([facility]) Vital Signs (Past 12 Hours) Vital Signs Temp Pulse Pulse Pulse Resp BP BP 03/06/20 14:57 36.6 C 60 20 184/92 H 03/06/20 12:20 36.6 C 58 L 03/06/20 12:00 63 170/105 H 03/06/20 11:40 63 170/105 H 03/06/20 11:20 56 L 158/95 H 03/06/20 11:00 57 L 150/89 H 03/06/20 10:40 59 L 150/89 H 03/06/20 10:20 59 L 162/88 H 03/06/20 10:00 67 158/103 H 03/06/20 09:40 61 165/93 H 03/06/20 09:20 67 176/104 H 03/06/20 09:09 36.7 C 67 03/06/20 07:41 36.4 C L 49 L 16 BP Pulse Ox 03/06/20 14:57 95 03/06/20 12:20 160/93 H 03/06/20 12:00 03/06/20 11:40 03/06/20 11:20 03/06/20 11:00 03/06/20 10:40 03/06/20 10:20 03/06/20 10:00 03/06/20 09:40 03/06/20 09:20 03/06/20 09:09 03/06/20 07:41 191/93 H 99 Laboratory Results 03/06/20 03/06/20 03/05/20 Range/Units 05:22 05:22 08:48 WBC 12.50 H (4.8-10.8) K/uL RBC 2.61 L (4.7-6.1) M/uL Hgb 7.8 L (14.0-18.0) g/dL Hct 23.6 L (42-52) % MCV 90.4 (80-100) fL MCH 29.9 (25-34) pg MCHC 33.1 (32-36) g/dL RDW Std Deviation 59.5 H (36.4-46.3) fL RDW Coeff of Pari 18.0 H (11.5-14.5) % Plt Count 238 (130-400) K/uL MPV 9.5 (7.4-10.4) fL Immature Gran % (Auto) 0.2 % Neut % (Auto) 83.8 % Lymph % (Auto) 8.9 % [place] % (Auto) 6.8 % Eos % (Auto) 0.2 % Baso % (Auto) 0.1 % Neut # (Auto) 10.48 H (1.4-6.5) K/uL Lymph # (Auto) 1.11 L (1.2-3.4) K/uL [place] # (Auto) 0.85 H (0.11-0.59) K/uL Eos # (Auto) 0.02 (0-0.5) K/uL Baso # (Auto) 0.01 (0-0.2) K/uL Immature Gran # (Auto) 0.03 H (0.00-0.02) K/uL Hypersegmented Neuts 1+ Sodium 143 (136-145) mmol/L Potassium 4.0 (3.5-5.1) mmol/L Chloride 118 H (98-107) mmol/L Carbon Dioxide 17 L (21-32) mmol/L Anion Gap 8.0 (3-11) BUN 115 H (7-18) mg/dl Creatinine 3.72 H D (0.6-1.4) mg/dl Est Cr Clr Drug Dosing 26.1 ml/min Est GFR ( Amer) 20.0 Est GFR (Non-Af Amer) 17.2 BUN/Creatinine Ratio 30.9 H (10-20) Glucose 94 (70-99) mg/dl Calcium 7.5 L (8.5-10.1) mg/dl Phosphorus 3.6 (2.5-4.9) mg/dl Albumin 2.3 L (3.4-5.0) gm/dl Hepatitis A IgM Ab NON-REACTIVE (NON-REACTIVE) Hep B Core IgM Ab NON-REACTIVE (NON-REACTIVE) PG Care Time/CCT Total # of Minutes Spent Total Time Spent with Patient: Total time spent is greater than 50% in coordination of care (as documented) at patient's floor/unit and/or counseling patient: Coding Level of Care Code 24617 Subseq Hosp Care Lvl 3 Diagnoses Glomerulonephritis N05.9 End stage renal disease N18.6 Hyperparathyroidism E21.3 HTN (hypertension) I10 Normocytic anemia D64.9 Metabolic acidosis E87.2 Leukocytosis D72.829 DVT prophylaxis Z29.9
[2020-03-07 06:14] LABS: Eosinophils # (auto) 0.02 K/uL (0-0.5); Eosinophils % (auto) 0.2 %; Hemoglobin 8.4 g/dL (14.0-18.0); Immature Granulocytes # (auto) 0.04 K/uL (0.00-0.02); Immature Granulocytes % (auto) 0.3 %; Lymphocytes # (auto) 1.47 K/uL (1.2-3.4); Lymphocytes % (auto) 12.8 %; Mean Corpuscular Hemoglobin 30.7 pg (25-34); Mean Corpuscular Hgb Conc 33.6 g/dL (32-36); Mean Corpuscular Volume 91.2 fL (80-100); Mean Platelet Volume 9.3 fL (7.4-10.4); Monocytes # (auto) 0.97 K/uL (0.11-0.59); Monocytes % (auto) 8.4 %; Neutrophils # (auto) 9.01 K/uL (1.4-6.5); Neutrophils % (auto) 78.3 %; Platelet Count 219 K/uL (130-400); RDW Coefficient of Variation 18.2 % (11.5-14.5); RDW Standard Deviation 59.9 fL (36.4-46.3); Red Blood Count 2.74 M/uL (4.7-6.1); White Blood Count 11.51 K/uL (4.8-10.8)
[2020-03-07 06:52] LABS: BUN Creatinine Ratio 26.6 (10-20); Calcium 7.9 mg/dl (8.5-10.1); Creatinine Clr Calc Pharmacy 32.1 ml/min; Est GFR (African American) 25.7; Est GFR (Non-African American) 22.2; Potassium 3.9 mmol/L (3.5-5.1)
[2020-03-07] MEDS ORDERED: SODIUM CHLORIDE 0.9% 1000ML 1,000 ML IV PRN ×2 (07:00)
[2020-03-07] MEDS ORDERED: HEPARIN SOD (PORCINE) 1000 UNIT/ML 10 ML VIAL IV SCH (07:00)
[2020-03-07] MEDS: NEPHROCAPS PO SCH (09:15)
[2020-03-07] MEDS: FERROUS SULFATE 325 MG TAB PO SCH ×2 (09:15→21:14)
[2020-03-07] MEDS: AMLODIPINE BESYLATE 5 MG TAB PO SCH ×2 (09:16→13:46)
[2020-03-07] MEDS: predniSONE 20 MG TAB PO SCH (09:16)
[2020-03-07] MEDS: CALCITRIOL 0.25 MCG CAPSULE PO SCH (09:16)
[2020-03-07] MEDS: SODIUM BICARBONATE 650 MG TAB PO SCH ×2 (09:16→13:46)
[2020-03-07] MEDS: LABETALOL HCL 300 MG TAB PO SCH (09:16)
[2020-03-07] MEDS: LOSARTAN POTASSIUM 50 MG TAB PO SCH (09:16)
--- NOTE | 2020-03-07 10:47 | Nephrology Progress Note ---
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 Prednisone 80 mg daily as part of a slow taper. Biopsy demonstrated fibrous crescents and other evidence of advanced disease requiring dialysis with little chance for renal recovery. (2) End stage renal disease: Started HD on 03/06/2020. No complications with first treatment. Orders for second treatment entered into EMR and discussed with the dialysis nurse this morning. POD#2 s/p RIJ permcath placement. Dilan will require AVF placement when appropriate. Social work consulted for discharge planning. Renal MVI daily. Plan 3rd HD treatment tomorrow. Minimal UF required. Remains non-oliguric. (3) Normocytic anemia: Venofer 200 mg IV and Epogen 31168 units provided with HD 03/06/2020. (4) HTN (hypertension): Remains on labetalol and amlodipine. Losartan 50 mg daily added today. Will monitor. Admission and Anticipated Discharge Date Admission Date: March 05, 2020 Subjective No acute events overnight. Tolerated first HD treatment yesterday without complications. Overall, feels well this morning. Denies dyspnea. No fluid retention. Minimal discomfort associated with TDC. Dressing change performed thi s AM. Review of Systems Review of Systems: All systems reviewed & are unremarkable except as noted in HPI & below Physical Exam Constitutional: well developed; no acute distress Eyes: no scleral abnormality and no corneal abnormality ENMT: Mouth: no oral mucosal abnormality and oral mucous membranes not dry Neck: normal visual inspection and trachea midline RIJ TDC Respiratory: normal respiratory effort Auscultation: lungs clear to auscultation bilaterally Cardiovascular: Rate/Rhythm: regular rate Heart Sounds: normal S1 and normal S2 Extremities: no edema Musculoskeletal: Extremities: no cyanosis and no clubbing Skin: normal turgor; no lesions Neurologic: Motor/Sensory: no tremor and no asterixis Psychiatric: Orientation: alert and oriented x 3 Results & Data ([facility]) Vital Signs (Past 12 Hours) Vital Signs Temp Pulse Pulse Pulse Resp BP BP 03/07/20 10:23 82 133/85 03/07/20 10:03 64 141/82 H 03/07/20 09:58 37 C 64 03/07/20 08:08 36.4 C L 49 L 16 181/97 H 03/07/20 01:52 191/96 H 03/07/20 00:16 36.1 C L 55 L 17 197/89 H Pulse Ox 03/07/20 10:23 03/07/20 10:03 03/07/20 09:58 03/07/20 08:08 98 03/07/20 01:52 03/07/20 00:16 97 Laboratory Results Laboratory Results - last 24 hr 03/05/20 03/07/20 03/07/20 08:48 05:05 05:05 WBC 11.51 H RBC 2.74 L Hgb 8.4 L Hct 25.0 L MCV 91.2 MCH 30.7 MCHC 33.6 RDW Std Deviation 59.9 H RDW Coeff of Pari 18.2 H Plt Count 219 MPV 9.3 Immature Gran % (Auto) 0.3 Neut % (Auto) 78.3 Lymph % (Auto) 12.8 [place] % (Auto) 8.4 Eos % (Auto) 0.2 Baso % (Auto) 0.0 Neut # (Auto) 9.01 H Lymph # (Auto) 1.47 [place] # (Auto) 0.97 H Eos # (Auto) 0.02 Baso # (Auto) 0.00 Immature Gran # (Auto) 0.04 H Sodium 143 Potassium 3.9 Chloride 113 H Carbon Dioxide 24 Anion Gap 6.0 BUN 80 H Creatinine 3.02 H D Est Cr Clr Drug Dosing 32.1 Est GFR ( Amer) 25.7 Est GFR (Non-Af Amer) 22.2 BUN/Creatinine Ratio 26.6 H Glucose 85 Calcium 7.9 L Hepatitis A IgM Ab NON-REACTIVE Hep B Core IgM Ab NON-REACTIVE PG Care Time/CCT Total # of Minutes Spent Total Time Spent with Patient: Total time spent is greater than 50% in coordination of care (as documented) at patient's floor/unit and/or counseling patient: Coding Level of Care Code 20056 Subseq Hosp Care Lvl 3 Diagnoses Glomerulonephritis N05.9 End stage renal disease N18.6 Normocytic anemia D64.9 HTN (hypertension) I10
--- NOTE | 2020-03-07 16:15 | Hospitalist Progress Note ---
Date of Service March 07, 2020 Assessment & Plan (1) Glomerulonephritis: C-ANCA positive acute GN Worsening renal function prior to admission On high dose steroids x 2 weeks now s/p renal biopsy at [facility] [place] -s/p perm cath placement 03/05 -started HD 03/06 short session and plans for 3 consecutive ramp up treatments, HD #2 today Appreciate Nephro management -follow labs daily -continue prednisone 80mg daily for now and plan to taper down--> need to confirm taper regimen with Nephro prior to discharge -continue NaHCO3, calcitriol Outpatient HD referral placed and now has chair reserved at [facility] in [place] for Tues/Thurs/Sat at 11:00 Eventually needs AVF placed as per Nephro (2) End stage renal disease: -as above - Underwent left renal biopsy on 02/15 at [facility] [place] - 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 -started on Nephrocaps (3) Hyperparathyroidism: 2/2 ESRD continue calcitriol (4) HTN (hypertension): With hypertensive urgency here-likely secondary to renal failure, high dose prednisone, some anxiety component Now improved with addition of losartan labetalol was held occasionally for asymptomatic bradycardia -change rate limit to hold for HR<55 for labetalol and will lower dose to 200mg bid now that is on losartan -continue amlodipine back to 10mg daily -continue losartan 50mg daily (5) Normocytic anemia: - Had baseline hemoglobin of 9.8, was given IV Venofer 300 mg x 3 days while at [place] Hgb down to 7.8 but now back up to 8.3, normocytic Fe sat 26% - Cont supplemental iron tabs -given IV Venofer and Epogen here with HD -follow CBC -started Nephrocaps (6) Metabolic acidosis: HCO3 down to 17 but now normalized with HD -started HD -can dc NaHO3 now that he is on HD (7) Leukocytosis: 12k WBCs and now down to 11k, likely secondary to high dose prednisone No signs of infection follow CBC (8) DVT prophylaxis: - teds, scds, avoid chem AC until ok with Vascular Surgery after procedure CODE: Full Dispo: continued stay for acute HD, full treatment for tomorrow and then possible discharge after that Admission and Anticipated Discharge Date Admission Date: March 05, 2020 Anticipated date of discharge: 03/08/20 Subjective Pt feeling well today, had his second HD session today and tolerated well. Denies PANDYA, CP, SOB, no N/V, is eating well. BPs improved today with addition of losartan Review of Systems Review of Systems: All systems reviewed & are unremarkable except as noted in HPI & below Physical Exam Constitutional: WD/WN, vitals as above Eyes: + anicteric sclerae Neck: trachea midline, no thyromegaly + abnormal visual inspection (right IJ with incisional wound with dermabond) Respiratory: normal respiratory effort, lungs clear to auscultation Cardiovascular: RRR, no murmur, no edema Extremities: + vascular access device (RIJ tunneled catheter w/ dressing,no erythema) Chest (Breasts): Chest: normal inspection of chest Gastrointestinal (Abdomen): normal bowel sounds, soft, nontender, no hepatosplenomegaly Musculoskeletal: Extremities: extremities normal to inspection; no cyanosis and no clubbing Skin: no rashes, warm and dry Neurologic: moves all extremities and awake; no focal motor deficits Psychiatric: A+Ox3, euthymic affect Lymphatic: no lymphedema Results & Data Results & Data ([facility]) Vital Signs (Past 12 Hours) Vital Signs Temp Pulse Pulse Resp BP BP Pulse Ox 03/07/20 13:07 37 C 57 L 166/99 H 03/07/20 13:03 56 L 159/99 H 03/07/20 12:40 55 L 147/92 H 03/07/20 12:20 55 L 151/96 H 03/07/20 12:00 51 L 159/91 H 03/07/20 11:40 53 L 145/89 H 03/07/20 11:20 61 160/87 H 03/07/20 11:00 54 L 134/80 03/07/20 10:40 61 129/80 03/07/20 10:23 82 133/85 03/07/20 10:03 64 141/82 H 03/07/20 09:58 37 C 64 03/07/20 08:08 36.4 C L 49 L 16 181/97 H 98 Laboratory Results 03/07/20 03/07/20 Range/Units 05:05 05:05 WBC 11.51 H (4.8-10.8) K/uL RBC 2.74 L (4.7-6.1) M/uL Hgb 8.4 L (14.0-18.0) g/dL Hct 25.0 L (42-52) % MCV 91.2 (80-100) fL MCH 30.7 (25-34) pg MCHC 33.6 (32-36) g/dL RDW Std Deviation 59.9 H (36.4-46.3) fL RDW Coeff of Pari 18.2 H (11.5-14.5) % Plt Count 219 (130-400) K/uL MPV 9.3 (7.4-10.4) fL Immature Gran % (Auto) 0.3 % Neut % (Auto) 78.3 % Lymph % (Auto) 12.8 % [place] % (Auto) 8.4 % Eos % (Auto) 0.2 % Baso % (Auto) 0.0 % Neut # (Auto) 9.01 H (1.4-6.5) K/uL Lymph # (Auto) 1.47 (1.2-3.4) K/uL [place] # (Auto) 0.97 H (0.11-0.59) K/uL Eos # (Auto) 0.02 (0-0.5) K/uL Baso # (Auto) 0.00 (0-0.2) K/uL Immature Gran # (Auto) 0.04 H (0.00-0.02) K/uL Sodium 143 (136-145) mmol/L Potassium 3.9 (3.5-5.1) mmol/L Chloride 113 H (98-107) mmol/L Carbon Dioxide 24 (21-32) mmol/L Anion Gap 6.0 (3-11) BUN 80 H (7-18) mg/dl Creatinine 3.02 H D (0.6-1.4) mg/dl Est Cr Clr Drug Dosing 32.1 ml/min Est GFR ( Amer) 25.7 Est GFR (Non-Af Amer) 22.2 BUN/Creatinine Ratio 26.6 H (10-20) Glucose 85 (70-99) mg/dl Calcium 7.9 L (8.5-10.1) mg/dl PG Care Time/CCT Total # of Minutes Spent Total Time Spent with Patient: Total time spent is greater than 50% in coordination of care (as documented) at patient's floor/unit and/or counseling patient: Coding Level of Care Code 73997 Subseq Hosp Care Lvl 3 Diagnoses Glomerulonephritis N05.9 End stage renal disease N18.6 Hyperparathyroidism E21.3 HTN (hypertension) I10 Normocytic anemia D64.9 Metabolic acidosis E87.2 Leukocytosis D72.829 DVT prophylaxis Z29.9
[2020-03-07] MEDS: FAMOTIDINE 20 MG TAB PO SCH (18:01)
[2020-03-07] MEDS: LABETALOL HCL 200 MG TAB PO SCH (21:14)
[2020-03-08 06:24] LABS: Eosinophils # (auto) 0.04 K/uL (0-0.5); Eosinophils % (auto) 0.3 %; Hematocrit (blood only) 27.7 % (42-52); Hemoglobin 8.9 g/dL (14.0-18.0); Immature Granulocytes # (auto) 0.05 K/uL (0.00-0.02); Immature Granulocytes % (auto) 0.4 %; Lymphocytes % (auto) 12.1 %; Mean Corpuscular Hemoglobin 30.3 pg (25-34); Mean Corpuscular Hgb Conc 32.1 g/dL (32-36); Mean Corpuscular Volume 94.2 fL (80-100); Mean Platelet Volume 9.3 fL (7.4-10.4); Monocytes # (auto) 1.05 K/uL (0.11-0.59); Neutrophils # (auto) 10.45 K/uL (1.4-6.5); Neutrophils % (auto) 79.2 %; Platelet Count 196 K/uL (130-400); RDW Coefficient of Variation 18.1 % (11.5-14.5); RDW Standard Deviation 62.2 fL (36.4-46.3); Red Blood Count 2.94 M/uL (4.7-6.1); White Blood Count 13.19 K/uL (4.8-10.8)
[2020-03-08] MEDS ORDERED: SODIUM CHLORIDE 0.9% 1000ML 1,000 ML IV PRN (07:00)
[2020-03-08 07:01] LABS: BUN Creatinine Ratio 19.7 (10-20); Calcium 7.7 mg/dl (8.5-10.1); Creatinine Clr Calc Pharmacy 33.7 ml/min; Est GFR (African American) 27.2; Est GFR (Non-African American) 23.5; Potassium 3.8 mmol/L (3.5-5.1)
[2020-03-08] MEDS: predniSONE 20 MG TAB PO SCH (08:06)
[2020-03-08] MEDS: FERROUS SULFATE 325 MG TAB PO SCH (08:06)
[2020-03-08] MEDS: FAMOTIDINE 20 MG TAB PO SCH (08:07)
[2020-03-08] MEDS: NEPHROCAPS PO SCH (08:07)
[2020-03-08] MEDS: CALCITRIOL 0.25 MCG CAPSULE PO SCH (08:07)
[2020-03-08] MEDS: LOSARTAN POTASSIUM 50 MG TAB PO SCH ×2 (08:07→08:40)
[2020-03-08] MEDS: LABETALOL HCL 200 MG TAB PO SCH ×2 (08:07→08:40)
[2020-03-08] MEDS: AMLODIPINE BESYLATE 5 MG TAB PO SCH ×2 (08:08→08:40)
--- NOTE | 2020-03-08 09:46 | Discharge Summary ---
Date of Service March 08, 2020 Admission HPI Per Admitting Provider This is a 54 yo M with PMHx of glomerulonephritis, acute on chronic anemia, hypertension, hyperparathyroidism secondary to renal disease who underwent recent kidney biopsy at [facility] on 02/15/2020. PT also smokes 1 ppd x many years. He used to drink heavily however has only had a few beers occasionally in the past 6 months. His course started in September at which his Cr was noted to be elevated at 2.7, and concern for hematuria and proteinuria and followed with nephrology since then. His care was delayed due to COVID-19 in December when he was supposed to follow with them. His Cr worsened to 3.6 and hgg dropped to 8.8, and pt was sent to [facility] for expedited workup for glomerulonephritis including kidney biopsy. He was admitted at [facility] from 02/14-02/19. He presents here today for placement of a permacath by vascular surgery. Nephrology has been consulted. He has been NPO since last evening. His last Cr. is fro 02/27 was 3.62. He has since been started on prednisone 80 mg daily, labetalol 300 mg BID, and sodium bicarb 1,300 mg TID. The patient is nervous about the procedure and has some fears about being on dialysis for his life. Principal Diagnosis ESRD on hemodialysis, Acute glomerulonephritis Discharge Exam Constitutional WD/WN, vitals as above Eyes + anicteric sclerae Neck trachea midline, no thyromegaly + abnormal visual inspection (right IJ with incisional wound with dermabond,mild edema rt supraclavicular) Respiratory normal respiratory effort, lungs clear to auscultation Cardiovascular RRR, no murmur, no edema Extremities: + vascular access device (RIJ tunneled catheter w/ dressing,no erythema) Chest (Breasts) Chest: normal inspection of chest Gastrointestinal (Abdomen) normal bowel sounds, soft, nontender, no hepatosplenomegaly Musculoskeletal Extremities: extremities normal to inspection; no cyanosis and no clubbing Skin no rashes, warm and dry Neurologic moves all extremities and awake; no focal motor deficits Psychiatric Orientation: alert and oriented x 3 Eye Contact: good eye contact Affect: + anxious affect Thought Process: goal directed thought process Lymphatic no lymphedema Discharge Data Allergies Allergy/AdvReac Type Severity Reaction Status Date / Time No Known Drug Allergies Allergy Unknown Verified 02/22/20 13:04 Consultations 03/05/20 08:31 Consult Nephrology Routine Consult Vascular Surgery Routine 03/05/20 08:34 Consult Case Management - Discharge Planning Routine 03/05/20 10:03 Consult Case Management - Discharge Planning Routine Procedures Performed Operation Date: 03/05/20 09:50 Actual Procedures p Perm Catheter Placement, Right Jugular Approach, Ultrasound Localization of Right Jugular Vein, Fluosocopy for Positioning, Moderate Sedation: 1226- 1241(Right) - Andrea Price MD Ordered Studies 03/05/20 08:34 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 before the 3rd treatment. Labs were acceptable, BP fairly well controlled from previous, volume status acceptable, making urine, lytes ok so deemed ok to discharge without third treatment. 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 -started on Nephrocaps (3) Hyperparathyroidism: 2/2 ESRD continue calcitriol (4) HTN (hypertension): With hypertensive urgency here-likely secondary to renal failure, high dose prednisone, some anxiety component Now improved with addition of losartan labetalol was held occasionally for asymptomatic bradycardia - lowered labetalol dose to 200mg bid now that is on losartan given bradycardia on higher dose -continue amlodipine 10mg daily -continue losartan 50mg daily (5) Normocytic anemia: - Had baseline hemoglobin of 9.8, was given IV Venofer 300 mg x 3 days while at [place] Hgb down to 7.8 but now back up to 8.9, normocytic Fe sat 26% - can dc supplemental iron tabs at pt's request--> plan to give IV Venofer with next HD treatment Wednesday -given IV Venofer and Epogen here with HD -follow CBC as outpt -started Nephrocaps (6) Metabolic acidosis: HCO3 down to 17 but now normalized with HD -started HD -can dc NaHO3 now that he is on HD (7) Leukocytosis: 12k-13k WBCs-likely secondary to high dose prednisone No signs of infection follow CBC (8) DVT prophylaxis: - teds, scds CODE: Full Dispo: medically stable for discharge Total Time Total Time Spent Total Time Spent (In Minutes): >30 min Total Time Includes: Examination of the Patient, Discharge Planning, Medication Reconciliation and Communication With Other Providers (Dr. Greer of Nephrology) Discharge Plan Discharge Items Patient Disposition: Home - Self-Care Reason For Visit: END STAGE KIDNEY DISEASE Discharge Diagnosis: ESRD on hemodialysis, Acute glomerulonephritis Condition on Discharge: Good Activity: As commented below Bathing Comment: Must keep your catheter in the neck/chest clean and dry Exercise/Sports: As tolerated Driving/Machine Use: No limitations Non-emergency contact: Primary Care Provider and Energy Advisor Call non-emergency contact if: you have any medication questions, your symptoms worsen, you have a fever, your temperature is above 101, your wound has increased redness, your wound has increased drainage and your wound pain has increased Follow-up/Referrals: Stephanie Jimenez MD [Physician] - (You will follow up with Dr. Jimenez at dialysis on Wednesday.) Jone Reddy [Primary Care Provider] - Diet: Dialysis Renal Addtl Attending Provider Instructions: Please continue to take all the medications as listed on your discharge instructions. There have been some changes to your medications since admission to better control your blood pressure. Please follow instructions given to you from the Vascular Surgeon regarding care of your new catheter. If you have chest pain, shortness of breath, nausea or vomiting, fevers/chills, or any other acute issue, please go to the hospital. As you know, you have your first outpatient dialysis scheduled for Wednesday and you are to arrive at 10:30. Best wishes, Suma Tussey Pending Studies at Discharge: No Stand-Alone Forms: My [facility], Smoking Cessation Medications and DC Order Prescriptions: New losartan 50 mg Tablet 50 mg PO QAM Qty: 30 RF: 0 acetaminophen 325 mg Tablet 650 mg PO Q4H PRN (Reason: pain) Qty: 30 RF: 0 famotidine 20 mg Tablet 20 mg PO DAILY PRN (Reason: indigestion) Qty: 30 RF: 0 Renal Caps 1 mg Capsule 1 cap PO QAM Qty: 30 RF: 0 calcitriol 0.25 mcg Capsule 0.25 mcg PO QAM Qty: 30 RF: 0 amlodipine 10 mg tablet 10 mg PO DAILY Qty: 30 RF: 0 Continued prednisone 20 mg tablet 80 mg PO DAILY RF: 0 Changed labetalol 100 mg tablet 200 mg PO BID Qty: 0 RF: 0 Discontinued sodium bicarbonate 650 mg tablet 1,300 mg PO TID RF: 0 ferrous sulfate 325 mg (65 mg iron) tablet 325 mg PO BID Qty: 60 RF: 0 Discharge Orders: Discharge Order (Routine); Ordered 03/08/20 Ordered By: Suma Jensen Admission Data Admit Date/Time: 03/05/20 08:08 Attending Provider: Suma Jensen Admit Provider: Suma Jensen Primary Care Provider: Jone Reddy Other Providers: Andrea Price Kevin C. Other Interventions: Discharge Summary Assessment (RN) Last Done: 03/08/20 09:27 Coding Level of Care Code D/C Day Management >30 mins Diagnoses Glomerulonephritis N05.9 End stage renal disease N18.6 Hyperparathyroidism E21.3 HTN (hypertension) I10 Normocytic anemia D64.9 Metabolic acidosis E87.2 Leukocytosis D72.829 DVT prophylaxis Z29.9
--- NOTE | 2020-03-08 10:45 | Nephrology Progress Note ---
Date of Service March 08, 2020 Assessment & Plan (1) Glomerulonephritis: Clinical presentation consistent with a longstanding GPA. Prednisone 80 mg daily as part of a slow taper. Dilan will follow up with Dr. Jimenez regarding this as an outpatient. Biopsy demonstrated fibrous crescents and other evidence of advanced disease requiring dialysis with little chance for renal recovery. (2) End stage renal disease: Started HD on 03/06/2020. No complications with first or second treatment. POD#3 s/p RIJ permcath placement. No complications with catheter. Dilan will require AVF placement when appropriate. Arrangements have been made for treatment at [facility] on Wednesday. Renal MVI daily. Treatment today canceled at patient's request which is acceptable. BP and volume status are acceptable. Remains non-oliguric. Oral NaHCO3 may be discontinued. Medications are otherwise appropriate for IHD. (3) Normocytic anemia: Venofer 200 mg IV and Epogen 19998 units provided with HD 03/06/2020. Oral iron may be held. (4) HTN (hypertension): Slightly elevated this AM but Dilan was agitated. No symptoms. Tolerating amlodipine, losartan, and labetalol well. Labetalol reduced to 200 mg twice daily as tolerated. Home monitoring was encouraged. Admission and Anticipated Discharge Date Admission Date: March 05, 2020 Subjective Tolerated HD well yesterday. Adequate clearance and minimal UF. Volume status remains acceptable. No events overnight. Significant anxiety this AM. Dilan was insisting on discharge. He did not want to stay to complete his 3rd dialysis treatment. He feels well. I saw the patient with Dr. Jensen and we reviewed the plan of care. Review of Systems Constitutional: no weight loss, no weight gain and no problem reported Eyes: no problem reported Ear, Nose, Mouth, Throat: no problem reported Respiratory: no problem reported Cardiovascular: no problem reported Gastrointestinal: no problem reported Musculoskeletal: no problem reported Integumentary: no problem reported Neurologic: no problem reported Psychiatric: no problem reported Endocrine: no problem reported Hematologic / Lymphatic: no problem reported Physical Exam Constitutional: well developed; no acute distress Eyes: no scleral abnormality and no corneal abnormality ENMT: Mouth: no oral mucosal abnormality and oral mucous membranes not dry Neck: normal visual inspection and trachea midline Respiratory: normal respiratory effort Auscultation: lungs clear to auscultation bilaterally Cardiovascular: Rate/Rhythm: regular rate Heart Sounds: normal S1 and normal S2 Extremities: no edema Musculoskeletal: Extremities: no cyanosis and no clubbing Skin: normal turgor; no lesions Neurologic: Motor/Sensory: no tremor and no asterixis Psychiatric: Orientation: alert and oriented x 3 Results & Data ([facility]) Vital Signs (Past 12 Hours) Vital Signs Temp Pulse Pulse Pulse Pulse Resp BP 03/08/20 09:58 67 135/82 03/08/20 09:27 36.5 C 65 57 L 54 L 62 18 135/82 03/08/20 07:32 36.5 C 54 L 18 03/07/20 23:43 36.7 C 62 18 BP Pulse Ox 03/08/20 09:58 03/08/20 09:27 99 03/08/20 07:32 185/95 H 99 03/07/20 23:43 168/92 H 98 Laboratory Results Laboratory Results - last 24 hr 03/08/20 03/08/20 05:34 05:34 WBC 13.19 H RBC 2.94 L Hgb 8.9 L Hct 27.7 L MCV 94.2 MCH 30.3 MCHC 32.1 RDW Std Deviation 62.2 H RDW Coeff of Pari 18.1 H Plt Count 196 MPV 9.3 Immature Gran % (Auto) 0.4 Neut % (Auto) 79.2 Lymph % (Auto) 12.1 [place] % (Auto) 8.0 Eos % (Auto) 0.3 Baso % (Auto) 0.0 Neut # (Auto) 10.45 H Lymph # (Auto) 1.60 [place] # (Auto) 1.05 H Eos # (Auto) 0.04 Baso # (Auto) 0.00 Immature Gran # (Auto) 0.05 H Sodium 141 Potassium 3.8 Chloride 109 H Carbon Dioxide 26 Anion Gap 7.0 BUN 57 H Creatinine 2.88 H Est Cr Clr Drug Dosing 33.7 Est GFR ( Amer) 27.2 Est GFR (Non-Af Amer) 23.5 BUN/Creatinine Ratio 19.7 Glucose 81 Calcium 7.7 L PG Care Time/CCT Total # of Minutes Spent Total Time Spent with Patient: Total time spent is greater than 50% in coordination of care (as documented) at patient's floor/unit and/or counseling patient: Coding Level of Care Code 30201 Subseq Hosp Care Lvl 3 Diagnoses Glomerulonephritis N05.9 End stage renal disease N18.6 Normocytic anemia D64.9 HTN (hypertension) I10
== END 2020-03-08 10:45 | disposition home or self-care (01) | DRG 699 ==
LOC: 3N 08:08